=== PATIENT | female | born 2000 | race Caucasian/White ===

== ENCOUNTER 2022-05-20 10:09 | Emergency (ER) | payer SELFPAY ==
[~2022-05-20] VITALS: Ht 157 cm; Wt 117.0 kg
--- NOTE | 2022-05-20 10:36 | ED EENT ---
History of Present Illness General Chief Complaint: Oral/Throat Problems Stated Complaint: STREP + | TONSILS SWOLLEN Source: patient Exam Limitations: no limitations History of Present Illness Date Seen by Provider: May 20, 2022 Time Seen by Provider: 10:14 Initial Comments 22yoF with no pertinent PMH coming in due to sore throat in the setting of being strep positive since Friday. Has been on amoxicillin since then, but not improving. Difficulty swallowing, no breathing difficulty. No fever, cough, or any other concerns Allergies and Home Medications Allergies Coded Allergies: Penicillins (Verified Allergy, Unknown, 05/20/22) clonidine (Verified Allergy, Unknown, 05/20/22) morphine (Verified Allergy, Unknown, 05/20/22) Patient Home Medication List Home Medication List Reviewed: Yes Review of Systems Review of Systems Constitutional: No fever Eyes: No Symptoms Reported Ears: No Symptoms Reported Nose: no symptoms reported Mouth: no symptoms reported Throat: see HPI Respiratory: no symptoms reported Cardiovascular: no symptoms reported Gastrointestinal: no symptoms reported Musculoskeletal: no symptoms reported Skin: no symptoms reported Neurological: No Symptoms Reported Hematologic/Lymphatic: No Symptoms Reported Immunological/Allergic: no symptoms reported All Other Systems Reviewed Negative Unless Noted: Yes Past Akojzol-Kymqou-Mjoyjc Hx Patient Social History Tobacco Use?: No Substance use?: No Alcohol Use?: No Pt feels they are or have been: No Immunizations Up To Date Influenza Vaccine Up-to-Date: Yes; Up-to-Date First/Initial COVID19 Vaccinat: 2020 Second COVID19 Vaccination Solomon: 2020 Past Medical History Surgery/Hospitalization HX: GERD, PCOS D&C Surgeries: Yes Physical Exam Height, Weight, BMI Height: '" Weight: lbs. oz. kg; BMI Method: General Appearance: WD/WN, no apparent distress Eyes: bilateral eye normal inspection Ears: bilateral ear auricle normal Nose: normal inspection Mouth/Throat: other (Tonsillar exudate and erythema but no swelling, uvula is midline, normal voice) Neck: non-tender, full range of motion, supple, normal inspection Cardiovascular: regular rate, rhythm, no edema, no murmur Respiratory: chest non-tender, lungs clear, normal breath sounds, no res piratory distress, no accessory muscle use Gastrointestinal: normal bowel sounds, non tender, soft; No distended, No guarding, No rebound Neurologic/Psychiatric: no motor/sensory deficits, alert, normal mood/affect Skin: normal color, warm/dry Progress/Results/Core Measures Progress Progress Note : Progress Note 22-year-old female above history coming in due to sore throat. ABCs were intact and vitals are stable on presentation. Physical exam consistent with strep throat. Given the documented allergy to penicillin with hives, we will change her over to clindamycin. Also give her a steroid to try to help with the throat discomfort. Departure Impression Primary Impression: Streptococcal sore throat Disposition: HOME, SELF-CARE Condition: Stable Departure-Patient Inst. Decision time for Depature: 10:36 Referrals: LETICIA CH DO (PCP) Primary Care Physician [facility] (Family) Primary Care Physician Patient Instructions: Strep Throat (DC) Add. Discharge Instructions: You can throw away the amoxicillin, you will be on a new antibiotic for the next week. The steroid we gave you should be long-acting and will start to help later on today with the pain and discomfort. Take the Tylenol as needed, and the Toradol for the pain. Do not mix ibuprofen or naproxen with the Toradol. Scripts Ketorolac Tromethamine (Ketorolac Tromethamine) 10 Mg Tablet 10 MG PO Q6H for 3 Days, #12 TAB Prov: SAHIL DE LA FUENTE MD 05/20/22 Clindamycin HCl (Clindamycin HCl) 300 Mg Capsule 300 MG PO QID for 7 Days, #28 CAP Prov: SAHIL DE LA FUENTE MD 05/20/22 Work/School Note: Work Release Form Date Seen in the Emergency Department: May 20, 2022 Return to Work: May 22, 2022 Restrictions: No Restrictions SAHIL DE LA FUENTE MD May 20, 2022 10:36
[2022-05-20] MEDS ORDERED: CLIN-144 PO (10:37)
[2022-05-20] MEDS ORDERED: KETO10TA PO (10:37)
[2022-05-20 10:53] VITALS: BP 124/77
== END 2022-05-20 10:54 | disposition home or self-care (01) ==
LOC: ER 10:14
DX: J02.0 Streptococcal pharyngitis (principal); Z88.1 Allergy status to other antibiotic agents
CPT/HCPCS: 99283

== ENCOUNTER 2022-08-16 06:33 | Emergency (ER) | payer SELFPAY ==
[~2022-08-16] VITALS: Ht 157.5 cm; Wt 113.4 kg
[~2022-08-16 06:33] MED LIST: CLIN-144 PO; KETO10TA PO
[2022-08-16] MEDS ORDERED: CETI10CA PO (06:45)
[2022-08-16] MEDS ORDERED: PRD1T PO (06:45)
[2022-08-16] MEDS ORDERED: FLUT9.9S NS (06:45)
[2022-08-16] MEDS ORDERED: LACTATED RINGERS 1,000 ML IV ONE (07:00)
[2022-08-16] MEDS ORDERED: KETOROLAC 30 MG/ML VIAL IVP ONE (07:00)
[2022-08-16] MEDS ORDERED: RT-ALBUTEROL HFA 8.5 GM INHALER IH STA (07:02)
--- NOTE | 2022-08-16 07:08 | ED General ---
General Chief Complaint: Oral/Throat Problems Stated Complaint: SOB Nursing Triage Note: C/O SORE THROAT/SWELLING, CHEST CONGESTION, INCREASED SOA. REPORTS PROGRESSIVELY WORSE OVER LAST 2 WEEKS. SEEN AT [facility] 08/14/22 STARTED ON PREDNISONE, ZYRTEC, FLONASE WITHOUT IMPROVEMENT. Source of Information: Patient Exam Limitations: No Limitations History of Present Illness Date Seen by Provider: Aug 16, 2022 Time Seen by Provider: 06:46 Initial Comments This 22-year-old young lady presents to the emergency room with 2 weeks of acute illness including sore throat, swollen tonsils, fatigue, difficulty swallowing, generalized myalgia, diarrhea, shortness of breath, and sharp pain in the chest with breathing. She has not had fevers that she is aware of. She did present to the clinic and was prescribed steroids which she believes were not very helpful. She does have a history of tonsillitis and strep throat in the past. She reports chronic tonsillar hypertrophy. She also has a history of asthma but does not presently use any inhaled medications. She is notably tachypneic and tachycardic during assessment. She reports no testing for viral illnesses or strep throat was performed in the clinic. Allergies and Home Medications Allergies Coded Allergies: Penicillins (Verified Allergy, Unknown, 05/20/22) clonidine (Verified Allergy, Unknown, 05/20/22) morphine (Verified Allergy, Unknown, 05/20/22) Patient Home Medication List Home Medication List Reviewed: Yes Azithromycin (Azithromycin) 250 Mg Tablet, 500 MG PO DAILY Prescribed by: ZHANG CHURCHILL on 08/16/22 09 Cetirizine HCl (Zyrtec) 10 Mg Capsule, 10 MG PO, (Reported) Entered as Reported by: ADOLFO OKEEFE on 08/16/22644 Last Action: New Order Fluticasone Propionate (Flonase Allergy Relief) 50 Mcg/Actuation [place].susp, 2 SPRAY NS DAILY, (Reported) Entered as Reported by: ADOLFO OKEEFE on 08/16/22644 Last Action: New Order Prednisone (Prednisone) 1 Mg Tab, Unknown Dose PO, (Reported) Entered as Reported by: ADOLFO OKEEFE on 08/16/22644 Last Action: New Order Discontinued Medications Clindamycin HCl (Clindamycin HCl) 300 Mg Capsule, 300 MG PO QID Discontinued Reason: No Longer Taking Prescribed by: SAHIL DE LA FUENTE on 05/20/22 1037 Last Action: Discontinued Ketorolac Tromethamine (Ketorolac Tromethamine) 10 Mg Tablet, 10 MG PO Q6H Discontinued Reason: No Longer Taking Prescribed by: SAHIL DE LA FUENTE on 05/20/22 1037 Last Action: Discontinued Review of Systems Review of Systems Constitutional: see HPI EENTM: see HPI Respiratory: see HPI Cardiovascular: see HPI Gastrointestinal: see HPI Genitourinary: no symptoms reported Musculoskeletal: see HPI Skin: no symptoms reported Psychiatric/Neurological: No Symptoms Reported Hematologic/Lymphatic: No Symptoms Reported Immunological/Allergic: no symptoms reported Past Odgcjwg-Evoevk-Tehapu Hx Patient Social History Tobacco Use?: No Substance use?: No Alcohol Use?: No Pt feels they are or have been: No Immunizations Up To Date First/Initial COVID19 Vaccinat: 2020 Second COVID19 Vaccination Solomon: 2020 Third COVID19 Vaccination Date: 2021 Past Medical History Surgery/Hospitalization HX: GERD, PCOS D&C Surgeries: Yes (Ectopic ) Respiratory: Yes Asthma Cardiac: No Neurological: No : No Reproductive Disorders: Yes Female Reproductive Disorders: Polycystic Ovarian Dis Genitourinary: No Gastrointestinal: Yes Gastroesophageal Reflux Musculoskeletal: No Endocrine: Yes ("Thyroid problem") HEENT: Yes (Chronic tonsillar hypertrophy) Cancer: No Psychosocial: Yes Integumentary: No Physical Exam Vital Signs Vital Signs - First Documented 08/16/22 06:40 Temp 37.4 Pulse 124 Resp 24 B/P (MAP) 152/97 (115) Pulse Ox 100 O2 Delivery Room Air Capillary Refill : Less Than 3 Seconds Height, Weight, BMI Height: '" Weight: lbs. oz. kg; 45.00 BMI Method: General Appearance: WD/WN, Mild Distress, Obese HEENT: PERRL/EOMI, TMs Normal, Pharyngeal Erythema, Tonsillar Exudate, Tonsillar Enlargement (Marked, nearly touching, symmetric) Neck: Normal Inspection Respiratory: Lungs Clear, No Accessory Muscle Use, No Respiratory Distress, Dec reased Breath Sounds; No Wheezing; Other (Tachypnea, decreased air movement, prolonged expiratory phase) Cardiovascular: No Edema, No Murmur, Tachycardia Extremity: Normal Inspection Neurologic/Psychiatric: Alert, Oriented x3, No Motor/Sensory Deficits, Normal Mood/Affect Skin: Normal Color, Warm/Dry Progress/Results/Core Measures Suspected Sepsis SIRS Temperature: Pulse: 124 Respiratory Rate: 24 Laboratory Tests 08/16/22 07:07: White Blood Count 9.6 Blood Pressure 152 /97 Mean: 115 Laboratory Tests 08/16/22 07:07: Creatinine 0.71, Platelet Count 221, Total Bilirubin 0.3 Results/Orders Lab Results Laboratory Tests Test 08/16/22 06:53 08/16/22 06:58 08/16/22 07:07 Range/Units Group A Streptococcus Screen NEGATIVE NEGATIVE Influenza Type A (RT-PCR) Not Detected Not Detecte Influenza Type B (RT-PCR) Not Detected Not Detecte SARS-CoV-2 RNA (RT-PCR) Not Detected Not Detecte White Blood Count 9.6 4.3-11.0 10^3/uL Red Blood Count 5.07 3.80-5.11 10^6/uL Hemoglobin 14.4 11.5-16.0 g/dL Hematocrit 42 35-52 % Mean Corpuscular Volume 84 80-99 fL Mean Corpuscular Hemoglobin 28 25-34 pg Mean Corpuscular Hemoglobin Concent 34 32-36 g/dL Red Cell Distribution Width 12.9 10.0-14.5 % Platelet Count 221 130-400 10^3/uL Mean Platelet Volume 10.6 9.0-12.2 fL Immature Granulocyte % (Auto) 1 % Neutrophils (%) (Auto) 73 42-75 % Lymphocytes (%) (Auto) 15 12-44 % Monocytes (%) (Auto) 11 0-12 % Eosinophils (%) (Auto) 0 0-10 % Basophils (%) (Auto) 0 0-10 % Neutrophils # (Auto) 7.0 1.8-7.8 10^3/uL Lymphocytes # (Auto) 1.4 1.0-4.0 10^3/uL Monocytes # (Auto) 1.1 H 0.0-1.0 10^3/uL Eosinophils # (Auto) 0.0 0.0-0.3 10^3/uL Basophils # (Auto) 0.0 0.0-0.1 10^3/uL Immature Granulocyte # (Auto) 0.1 0.0-0.1 10^3/uL Sodium Level 139 135-145 MMOL/L Potassium Level 3.4 L 3.6-5.0 MMOL/L Chloride Level 103 98-107 MMOL/L Carbon Dioxide Level 25 21-32 MMOL/L Anion Gap 11 5-14 MMOL/L Blood Urea Nitrogen 7 7-18 MG/DL Creatinine 0.71 0.60-1.30 MG/DL Estimat Glomerular Filtration Rate 123 BUN/Creatinine Ratio 10 Glucose Level 94 70-105 MG/DL Calcium Level 8.8 8.5-10.1 MG/DL Corrected Calcium 8.8 8.5-10.1 MG/DL Total Bilirubin 0.3 0.1-1.0 MG/DL Aspartate Amino Transf (AST/SGOT) 14 5-34 U/L Alanine Aminotransferase (ALT/SGPT) 19 0-55 U/L Alkaline Phosphatase 62 40-136 U/L C-Reactive Protein High Sensitivity 4.43 H 0.00-0.50 MG/DL Total Protein 7.2 6.4-8.2 GM/DL Albumin 4.0 3.2-4.5 GM/DL Serum Test, Qualitative NEGATIVE NEGATIVE Monoscreen NEGATIVE NEGATIVE My Orders Orders - ZHANG BANERJEE MD Cbc With Automated Diff (08/16/22 06:56) Comprehensive Metabolic Panel (08/16/22 06:56) Hs C Reactive Protein (08/16/22 06:56) Hcg,Qualitative Serum (08/16/22 06:56) Monotest (08/16/22 06:56) Rapid Strep A Screen (08/16/22 06:56) Covid 19 Inhouse Test (08/16/22 06:56) Influenza A And B By Pcr (08/16/22 06:56) Ed Iv/Invasive Line Start (08/16/22 06:56) Lactated Ringers (Lr 1000 Ml Iv Solution (08/16/22 07:00) Ketorolac Injection (Toradol Injection) (08/16/22 07:00) Albuterol Inhaler (Albuterol) (08/16/22 07:02) Chest Pa/Lat (2 View) (08/16/22 08:00) Medications Given in ED Current Medications Medications Dose Ordered Sig/Reyes Route Start Time Stop Time Status Last Admin Dose Admin Ketorolac Tromethamine 30 mg ONCE ONCE IVP 08/16/22 07:00 08/16/22 07:01 DC 08/16/22 07:05 30 MG Lactated Ringer's 1,000 ml @ 0 mls/hr Q0M ONCE IV 08/16/22 07:00 08/16/22 07:01 DC 08/16/22 07:05 999 MLS/HR Vital Signs/I&O 08/16/22 08/16/22 06:40 09:17 Temp 37.4 36.5 Pulse 124 87 Resp 24 17 B/P (MAP) 152/97 (115) 137/86 Pulse Ox 100 98 O2 Delivery Room Air Room Air Capillary Refill : Less Than 3 Seconds Blood Pressure Mean: 115 Progress Note #1: Time: 07:11 Progress Note Patient has been interviewed and examined. This is a prolonged illness with worsening condition despite treatment with steroids. She is notably tachycardic and tachypneic with difficulty breathing and markedly enlarged tonsils. This prolonged illness should be evaluated further with labs, strep testing, and viral testing. Work-up including CBC, CMP, CRP, monoscreen, viral screening for influenza and COVID, and rapid strep test is being performed. If serum test is negative, chest x-ray will also be obtained. IV fluids are in fusing. Pain is being treated with Toradol. Shortness of breath with prolonged expiratory phase is being treated with an albuterol inhaler. Further therapies will depend on results of tests. Progress Note #2: Progress Note Work-up was essentially unremarkable. CBC, CMP, and CRP were reviewed by me and were normal. Screening test for infectious illnesses including mono, influenza, COVID-19, and rapid strep were also all negative. Chest x-ray was viewed by me and no acute abnormalities were appreciated. Radiologist report was also reviewed and no acute abnormalities were appreciated. Patient had prolonged expiratory phase on auscultation and albuterol inhaler was provided. This did improve her breathing some. She reports Toradol did not help her discomfort much. Her heart rate did drop into the 1 teens after 300 mL of IV fluids and Toradol. She only received 300 mL of IV fluids before her IV failed. Patient was discharged in somewhat improved condition with a prescription for azithromycin. She has tried amoxicillin and Augmentin in the past without much improvement in symptoms. She has a penicillin allergy but can take amoxicillin products. I advised referral to an ENT provider, but her lack of insurance makes this prohibitive. We discussed options for looking into other types of insurance coverage. Discharge instructions, prescription, and use of [id number] medications were reviewed with the patient. See discharge instructions for further discussion. Diagnostic Imaging Diagonstic Imaging: Xray Plain Films/CT/US/NM/MRI: chest Comments Chest x-ray viewed by me and report reviewed. No acute abnormalities were appreciated by my interpretation. Radiologist's report was also reviewed as below: NAME: DONALD [facility] REC#: [id number] PT STATUS: REG ER : 2000 PHYSICIAN: ZHANG BANERJEE MD ADMIT DATE: 08/16/22/ER Draft Date of Exam:08/16/22 CHEST PA/LAT (2 VIEW) Indication: Sore throat and throat swelling as well as chest congestion increasing shortness of air. Time of Exam: 8:23 AM No prior studies are available for comparison. Findings: The heart size is normal. The pulmonary vascularity is unremarkable. The lungs are clear. No infiltrate, effusion or pneumothorax is detected. Impression: No acute cardiopulmonary process is detected. Dictated on workstation # [id number] Dict: 08/16/22816 Trans: 08/16/22 08 CV [id number] Interpreted by: BENEDICT TERRELL MD Departure Impression Primary Impression: Recurrent tonsillitis Additional Impressions: Acute bronchitis Qualified Codes: J20.9 - Acute bronchitis, unspecified Flu-like symptoms Disposition: 01 HOME, SELF-CARE Condition: Stable Admissions Decision to Admit/Date: Aug 16, 2022 Time/Decision to Admit Time: 08:54 Departure-Patient Inst. Decision time for Depature: 08:54 Referrals: JANKI ELLIOTT APRN (PCP) Primary Care Physician [facility] (Family) Primary Care Physician Patient Instructions: Sore Throat in Adults Add. Discharge Instructions: Drink plenty of clear liquids to stay well-hydrated. For pain or fever you may take ibuprofen up to 600 mg every 6 hours as needed and Tylenol (acetaminophen) up to 1000 mg every 6 hours as needed. Complete the entire course of azithromycin as prescribed. You should take 2 tablets daily for 5 days. Seek follow-up with your primary care provider next week to review throat culture results and to further evaluate your recurrent tonsillitis and a plan for further treatment of recurrent tonsillitis. Use your inhaler up to 4 puffs in a 4-hour period of time as needed for wheezing, uncontrolled cough, or difficulty with expiration. For your nasal congestion you may use [id number] Afrin (Oxymetazoline). Limit Afrin to 3 days only. You may use rzcl-tel-bidmovz Flonase (fluticasone) as a maintenance medication for sinus congestion, nasal allergies, etc. On day 3 or 4 of antibiotics and again the day after completing antibiotic, sanitize or replace any oral instruments such as toothbrushes. You may finish the steroids as prescribed. Complete financial analysis consultant paperwork for the hospital if you have not already done so and seek options for insurance coverage on the exchange or through your family's employers. Work toward weight loss to improve your general health and especially to improve problems with breathing and fullness in the throat that may cause more severe symptoms with tonsillitis, sleep apnea, etc. Return to care if you have worsening symptoms despite following these instructions. All discharge instructions reviewed with patient and/or family. Voiced understanding. Scripts Azithromycin (Azithromycin) 250 Mg Tablet 500 MG PO DAILY, #10 TAB 0 Refills Prov: ZHANG BANERJEE MD 08/16/22 Work/School Note: Work Release Form Date Seen in the Emergency Department: Aug 16, 2022 Return to Work: Aug 17, 2022 Restrictions: Return-No Fever (24hrs), Return-No Vomiting(24hrs) Copy Copies To 1: [facility]/ZHANG EUGENE MD Aug 16, 2022 07:08
[2022-08-16 07:17] LABS: BASOPHILS % (AUTO) 0 % (0-10); EOSINOPHILS % (AUTO) 0 % (0-10); HEMATOCRIT 42 % (35-52); HEMOGLOBIN 14.4 g/dL (11.5-16.0); LYMPHOCYTES # (AUTO) 1.4 10^3/uL (1.0-4.0); LYMPHOCYTES % (AUTO) 15 % (12-44); MEAN CORPUSCULAR HEMOGLOBIN 28 pg (25-34); MEAN CORPUSCULAR HGB CONC 34 g/dL (32-36); MEAN CORPUSCULAR VOLUME 84 fL (80-99); MEAN PLATELET VOLUME 10.6 fL (9.0-12.2); MONOCYTES # (AUTO) 1.1 10^3/uL (0.0-1.0); MONOCYTES % (AUTO) 11 % (0-12); NEUTROPHILS % (AUTO) 73 % (42-75); PLATELET COUNT 221 10^3/uL (130-400); WHITE BLOOD COUNT 9.6 10^3/uL (4.3-11.0)
[2022-08-16 07:45] LABS: POTASSIUM 3.4 MMOL/L (3.6-5.0)
[2022-08-16 07:47] LABS: CALCIUM 8.8 MG/DL (8.5-10.1)
[2022-08-16 07:48] LABS: TOTAL PROTEIN 7.2 GM/DL (6.4-8.2)
[2022-08-16 07:50] LABS: BILIRUBIN,TOTAL 0.3 MG/DL (0.1-1.0)
[2022-08-16 07:51] LABS: CREATININE SERUM 0.71 MG/DL (0.60-1.30)
--- NOTE | 2022-08-16 08:20 | Diagnostic Imaging Report ---
Indication: Sore throat and throat swelling as well as chest congestion increasing shortness of air. Time of Exam: 8:23 AM No prior studies are available for comparison. Findings: The heart size is normal. The pulmonary vascularity is unremarkable. The lungs are clear. No infiltrate, effusion or pneumothorax is detected. Impression: No acute cardiopulmonary process is detected. Dictated by: Dictated on workstation # [id number]
[2022-08-16] MEDS ORDERED: AZIT250T12 PO (09:02)
[2022-08-16 09:17] VITALS: BP 137/86
[2022-08-17] MEDS ORDERED: CLINDAMYCIN 600 MG/50 ML IVPB 50 ML IV ONE (20:45)
[2022-08-17] MEDS ORDERED: PRD20T PO (22:08)
[2022-08-17] MEDS ORDERED: CEFU250T80 PO (22:08)
== END 2022-08-16 09:17 | disposition home or self-care (01) ==
LOC: EDUNIT# 06:33 → ER 06:36
DX: J03.91 Acute recurrent tonsillitis, unspecified (principal); J20.9 Acute bronchitis, unspecified; J45.909 Unspecified asthma, uncomplicated; E66.9 Obesity, unspecified; Z88.0 Allergy status to penicillin; Z68.42 Body mass index [BMI] 45.0-49.9, adult; Z20.822 Contact with and (suspected) exposure to COVID-19
CPT/HCPCS: 36415; 71046; 80053; 84703; 85025; 86141; 86308; 87430; 87636

== ENCOUNTER 2022-08-17 20:17 | Emergency (ER) | payer SELFPAY ==
[~2022-08-17] VITALS: Ht 157.5 cm; Wt 113.4 kg
[~2022-08-17 20:17] MED LIST changes: +AZIT250T12 PO; +CETI10CA PO; +FLUT9.9S NS; +PRD1T PO
[2022-08-17] MEDS ORDERED: NS IV 1000 ML 1,000 ML IV STA ×2 (20:42→21:42)
[2022-08-17] MEDS ORDERED: KETOROLAC 30 MG/ML VIAL IVP ONE (20:45)
--- NOTE | 2022-08-17 20:49 | ED EENT ---
History of Present Illness General Stated Complaint: SORE THROAT/DIFFICULTY SWALLOWING/SOA Source: patient Exam Limitations: no limitations (SAHIL RAMOS) History of Present Illness Date Seen by Provider: Aug 17, 2022 Time Seen by Provider: 20:45 Initial Comments Patient is a 22-year-old female who presents ED with 2 weeks of sore throat, difficulty swallowing and shortness of breath. History of recurring tonsillitis. She states she was seen here yesterday and prescribed azithromycin. She was seen this past week started on ProAir at his own. She had a negative COVID, influenza and strep swab. She states this is the third time over the past few months that she has had this reoccurring tonsillitis. She states this evening she started having difficulty swallowing and with pain with eating. Denies of any wheezing. Has been using albuterol inhaler without much improvement. She reports nasal congestion without any sinus pressure. She is febrile and tachycardic on arrival. Sepsis work-up was initiated started on clindamycin. Denies vomiting, diarrhea, dysuria, hematuria, concern for , visual changes, unable to tolerate (SAHIL RAMOS) Allergies and Home Medications Allergies Coded Allergies: Penicillins (Verified Allergy, Unknown, 05/20/22) clonidine (Verified Allergy, Unknown, 05/20/22) morphine (Verified Allergy, Unknown, 05/20/22) Patient Home Medication List Home Medication List Reviewed: Yes (SAHIL RAMOS) Azithromycin (Azithromycin) 250 Mg Tablet, 500 MG PO DAILY Prescribed by: ZHANG CHURCHILL on 08/16/22901 Cefuroxime Axetil (Cefuroxime) 250 Mg Tablet, 250 MG PO BID Prescribed by: EFREM PYLE on 08/17/222207 Cetirizine HCl (Zyrtec) 10 Mg Capsule, 10 MG PO, (Reported) Entered as Reported by: ADOLFO OKEEFE on 08/16/22644 Fluticasone Propionate (Flonase Allergy Relief) 50 Mcg/Actuation [place].susp, 2 SPRAY NS DAILY, (Reported) Entered as Reported by: ADOLFO OKEEFE on 08/16/22644 Prednisone (Prednisone) 1 Mg Tab, Unknown Dose PO, (Reported) Entered as Reported by: ADOLFO OKEEFE on 08/16/22644 Prednisone (Prednisone) 20 Mg Tab, 20 MG PO UD Prescribed by: EFREM PYLE on 08/17/228 Discontinued Medications Clindamycin HCl (Clindamycin HCl) 300 Mg Capsule, 300 MG PO QID Discontinued Reason: No Longer Taking Prescribed by: SAHIL DE LA FUENTE on 05/20/22 1037 Ketorolac Tromethamine (Ketorolac Tromethamine) 10 Mg Tablet, 10 MG PO Q6H Discontinued Reason: No Longer Taking Prescribed by: SAHIL DE LA FUENTE on 05/20/22 1037 Review of Systems Review of Systems Constitutional: chills; No diaphoresis; fever, malaise; No weakness Eyes: Denies Blurred Vision, Denies Drainage, Denies Decreased Acuity, Denies Inflammation, Denies Pain, Denies Photophobia Ears: Denies Dizziness, Denies Bloody Discharge Nose: congestion Mouth: swelling Throat: pain, swelling, painful swallowing, difficulty with fluids Respiratory: No see HPI, No cough, No dyspnea on exertion Cardiovascular: No chest pain Gastrointestinal: No abdominal pain, No diarrhea, No nausea, No vomiting Musculoskeletal: No back pain, No joint pain Skin: change in color, change in hair/nails (SAHIL RAMOS) All Other Systems Reviewed Negative Unless Noted: Yes (SAHIL RAMOS) Past Azpxjnj-Aehknq-Fshgcv Hx Immunizations Up To Date First/Initial COVID19 Vaccinat: 2020 Second COVID19 Vaccination Solomon: 2020 Third COVID19 Vaccination Date: 2021 (SAHIL RAMOS) Past Medical History Surgery/Hospitalization HX: GERD, PCOS D&C Surgeries: Yes (Ectopic ) Respiratory: Yes Asthma Cardiac: No Neurological: No Reproductive Disorders: Yes Female Reproductive Disorders: Polycystic Ovarian Dis Genitourinary: No Gastrointestinal: Yes Gastroesophageal Reflux Musculoskeletal: No Endocrine: Yes ("Thyroid problem") HEENT: Yes (Chronic tonsillar hypertrophy) Cancer: No Psychosocial: Yes Integumentary: No (SAHIL RAMOS) Physical Exam Vital Signs Vital Signs - First Documented 08/17/22 20:28 Temp 37.9 Pulse 119 Resp 20 B/P (MAP) 140/93 (109) Pulse Ox 96 O2 Delivery Room Air (LORI LAMA K DO) Height, Weight, BMI Height: '" Weight: lbs. oz. kg; 45.00 BMI Method: General Appearance: WD/WN, no apparent distress Eyes: bilateral eye normal inspection, bilateral eye PERRL, bilateral eye EOMI Ears: bilateral ear auricle normal, bilateral ear canal normal, bilateral ear TM normal, bilateral ear bleeding Nose: normal inspection Mouth/Throat: other (Oropharynx patent with exudate right tonsil. No uvula deviation. Tolerate secretions. Cervical adenopathy) Neck: non-tender, full range of motion, supple, normal inspection Cardiovascular: no edema, no gallop, no JVD, tachycardia Respiratory: chest non-tender, lungs clear, normal breath sounds, no res piratory distress Gastrointestinal: normal bowel sounds, non tender, soft, no organomegaly Neurologic/Psychiatric: gas flow regulator II-XII nml as tested, no motor/sensory deficits, alert, normal mood/affect, oriented x 3 Skin: normal color, warm/dry (SAHIL RAMOS) Progress/Results/Core Measures Results/Orders Lab Results Laboratory Tests Test 08/17/22 20:35 08/17/22 20:48 Range/Units Influenza Type A (RT-PCR) Not Detected Not Detecte Influenza Type B (RT-PCR) Not Detected Not Detecte SARS-CoV-2 RNA (RT-PCR) Not Detected Not Detecte Group A Streptococcus Screen NEGATIVE NEGATIVE White Blood Count 8.6 4.3-11.0 10^3/uL Red Blood Count 4.84 3.80-5.11 10^6/uL Hemoglobin 13.5 11.5-16.0 g/dL Hematocrit 40 35-52 % Mean Corpuscular Volume 82 80-99 fL Mean Corpuscular Hemoglobin 28 25-34 pg Mean Corpuscular Hemoglobin Concent 34 32-36 g/dL Red Cell Distribution Width 12.6 10.0-14.5 % Platelet Count 238 130-400 10^3/uL Mean Platelet Volume 10.4 9.0-12.2 fL Immature Granulocyte % (Auto) 1 % Neutrophils (%) (Auto) 60 42-75 % Lymphocytes (%) (Auto) 26 12-44 % Monocytes (%) (Auto) 12 0-12 % Eosinophils (%) (Auto) 1 0-10 % Basophils (%) (Auto) 0 0-10 % Neutrophils # (Auto) 5.2 1.8-7.8 10^3/uL Lymphocytes # (Auto) 2.3 1.0-4.0 10^3/uL Monocytes # (Auto) 1.0 0.0-1.0 10^3/uL Eosinophils # (Auto) 0.0 0.0-0.3 10^3/uL Basophils # (Auto) 0.0 0.0-0.1 10^3/uL Immature Granulocyte # (Auto) 0.0 0.0-0.1 10^3/uL Sodium Level 137 135-145 MMOL/L Potassium Level 3.6 3.6-5.0 MMOL/L Chloride Level 103 98-107 MMOL/L Carbon Dioxide Level 22 21-32 MMOL/L Anion Gap 12 5-14 MMOL/L Blood Urea Nitrogen 7 7-18 MG/DL Creatinine 0.68 0.60-1.30 MG/DL Estimat Glomerular Filtration Rate 126 BUN/Creatinine Ratio 10 Glucose Level 95 70-105 MG/DL Lactic Acid Level 0.60 0.50-2.00 MMOL/L Calcium Level 9.2 8.5-10.1 MG/DL Corrected Calcium 9.4 8.5-10.1 MG/DL Total Bilirubin 0.4 0.1-1.0 MG/DL Aspartate Amino Transf (AST/SGOT) 23 5-34 U/L Alanine Aminotransferase (ALT/SGPT) 28 0-55 U/L Alkaline Phosphatase 65 40-136 U/L C-Reactive Protein High Sensitivity 11.45 H 0.00-0.50 MG/DL Total Protein 7.4 6.4-8.2 GM/DL Albumin 3.8 3.2-4.5 GM/DL Lipase 34 8-78 U/L (GENARO,NANI K DO) Medications Given in ED Current Medications Medications Dose Ordered Sig/Reyes Route Start Time Stop Time Status Last Admin Dose Admin Iohexol 75 ml ONCE ONCE IV 08/17/22 21:00 08/17/22 21:01 DC 08/17/22 21:10 75 ML Ketorolac Tromethamine 30 mg ONCE ONCE IVP 08/17/22 20:45 08/17/22 20:46 DC 08/17/22 20:49 30 MG Sodium Chloride 100 ml ONCE ONCE IV 08/17/22 21:00 08/17/22 21:01 DC 08/17/22 21:10 80 ML (NANI LAM DO) Vital Signs/I&O 08/17/22 08/17/22 20:28 22:52 Temp 37.9 Pulse 119 102 Resp 20 18 B/P (MAP) 140/93 (109) 113/79 Pulse Ox 96 98 O2 Delivery Room Air Room Air (NANI LAM DO) Departure Communication (PCP) reviewed previous ER visit, lab tests. History of recurrent tonsillitis. She reports 10 episodes over the past year. She was seen here yesterday diagnosed with pharyngitis was discharged with azithromycin and albuterol inhaler. She states she started prednisone unknown dose on August 14 prescribed by [facility]. She states this evening she was having difficulty swallowing with pain difficulty breathing. Her oxygen on room air was 96%. No stridor, wheezing. Tolerating secretions. Patient had a negative strep, COVID and influenza and mono yesterday. Negative strep today. Culture pending. Patient was tachycardic and febrile. Due to worsening symptoms sepsis work-up was initiated. She was started on a liter of fluid and was given Toradol for the fever and pain. CBC, CMP was otherwise unremarkable. Normal lactic acid. Blood cultures pending. Was started on IV clindamycin. No uvula deviation on exam of her throat. Exudate noted on the right tonsil. Cervical adenopathy. No tenderness to the floor the mouth. Due to worsening symptoms difficulty breathing CT of the neck was ordered. Results of her CT soft tissue neck shows severe pharyngitis without evidence of fluid collection. No evidence of retropharyngeal abscess. No evidence of epiglottitis. Patent infra laryngeal trachea. Larynx without any structural abnormality. She had a negative chest x-ray performed yesterday. Patient was still slightly tachycardic. Was given a second liter of fluid. Discussed patient with Dr. Beckford ENT on-call. He recommends starting ceftin to 50 mg twice daily for 10 days. Recommends taper dose of steroid. Will prescribe 1 dose of 40 mg steroid and to taper to 20 mg for additional 4 days for total of 8 days. Recommend follow-up with primary care physician and to get a referral to Dr. Beckford to discuss her tonsils. She agrees with this plan of action. Tolerate secretions. She is able to eat. She has not been on antibiotics for that long to notice an improvement. Continue monitoring symptoms at home. This was discussed with mother at bedside as well. Improvement of her heart rate 100 and fever. (SAHIL RAMOS) Impression Primary Impression: Recurrent tonsillitis Disposition: HOME, SELF-CARE Condition: Stable Departure-Patient Inst. Decision time for Depature: 22:05 (SAHIL RAMOS) Referrals: JANKI ELLIOTT APRN (PCP) Primary Care Physician [facility] (Family) Primary Care Physician SORAYA BECKFORD MD Patient Instructions: Sore Throat in Adults, Sore Throat, Adult ED Add. Discharge Instructions: Recommend follow-up your primary care physician for further evaluation and follow-up with Dr. Beckford. If any worsening symptoms return back to ED Scripts Prednisone (Prednisone) 20 Mg Tab 20 MG PO UD, #6 TAB Take 2 tabs(40mg) for 1 day, and than decrease to 1 tab (20mg)daily for additional 4 days. Prov: SAHIL RAMOS 08/17/22 Cefuroxime Axetil (Cefuroxime) 250 Mg Tablet 250 MG PO BID for 10 Days, #20 TAB Prov: SAHIL RAMOS 08/17/22 Work/School Note: Work Release Form Date Seen in the Emergency Department: Aug 17, 2022 Return to Work: Aug 21, 2022 ATTENDING PHYSICIAN NOTE: I WAS PHYSICALLY PRESENT ER PHYSICIAN, BUT I WAS NOT INVOLVED IN ANY DECISION MAKING OR ANY CARE OF THIS PATIENT AND I AM NOT COLLABORATING PHYSICIAN. (NANI LAM DO) SAHIL RAMOS Aug 17, 2022 20:48 NANI LAM DO Aug 18, 2022 04:10
[2022-08-17] MEDS ORDERED: HOLD METFORMIN - RECEIVED CONTRAST 20 ML VIAL IV SCH (21:00)
[2022-08-17] MEDS ORDERED: IOHEXOL 350 MG/ML 100 ML (OMNIPAQUE 350) VIAL IV ONE (21:00)
[2022-08-17] MEDS ORDERED: NS 100 ML (IVPB) BAG IV ONE (21:00)
--- NOTE | 2022-08-17 21:25 | Diagnostic Imaging Report ---
PROCEDURE: CT neck soft tissue with contrast. TECHNIQUE: Multiple contiguous axial images were obtained through the neck after the administration of contrast. Auto Exposure Controls were utilized during the CT exam to meet ALARA standards for radiation dose reduction. INDICATION: Sore throat, difficulty swallowing. FINDINGS: There is symmetrical low-density edematous thickening of the nasopharynx, oropharynx and hypopharyngeal mucosa, consistent with pharyngitis. No abscess or fluid collection, however. The free edge of the epiglottis appears unremarkable. The aryepiglottic folds normal. Focal folds and remaining structures of the larynx normal. The infra-laryngeal trachea patent. Prevertebral and retropharyngeal spaces normal. Parotid submandibular and thyroid glands unremarkable. There is some reactive cervical lymphadenopathy, bilaterally. Paranasal sinuses clear. Bony structures nonacute. IMPRESSION: Findings of a significant degree of pharyngitis but no abscess or drainable fluid collection and no evidence for epiglottitis. Dictated by: Dictated on workstation # [id number]
[2022-08-17 21:35] LABS: BASOPHILS % (AUTO) 0 % (0-10); EOSINOPHILS % (AUTO) 1 % (0-10); HEMATOCRIT 40 % (35-52); HEMOGLOBIN 13.5 g/dL (11.5-16.0); LYMPHOCYTES # (AUTO) 2.3 10^3/uL (1.0-4.0); LYMPHOCYTES % (AUTO) 26 % (12-44); MEAN CORPUSCULAR HEMOGLOBIN 28 pg (25-34); MEAN CORPUSCULAR HGB CONC 34 g/dL (32-36); MEAN CORPUSCULAR VOLUME 82 fL (80-99); MEAN PLATELET VOLUME 10.4 fL (9.0-12.2); MONOCYTES % (AUTO) 12 % (0-12); NEUTROPHILS # (AUTO) 5.2 10^3/uL (1.8-7.8); NEUTROPHILS % (AUTO) 60 % (42-75); PLATELET COUNT 238 10^3/uL (130-400); WHITE BLOOD COUNT 8.6 10^3/uL (4.3-11.0)
[2022-08-17 21:51] LABS: ALBUMIN 3.8 GM/DL (3.2-4.5); BILIRUBIN,TOTAL 0.4 MG/DL (0.1-1.0); CALCIUM 9.2 MG/DL (8.5-10.1); CREATININE SERUM 0.68 MG/DL (0.60-1.30); POTASSIUM 3.6 MMOL/L (3.6-5.0); TOTAL PROTEIN 7.4 GM/DL (6.4-8.2)
[2022-08-17] MEDS ORDERED: PRD20T PO (22:08)
[2022-08-17] MEDS ORDERED: CEFU250T80 PO (22:08)
[2022-08-17 22:52] VITALS: BP 113/79
== END 2022-08-17 22:52 | disposition home or self-care (01) ==
LOC: EDUNIT# 20:17 → ER 20:20
DX: J03.91 Acute recurrent tonsillitis, unspecified (principal); A41.9 Sepsis, unspecified organism; Z88.0 Allergy status to penicillin; Z20.822 Contact with and (suspected) exposure to COVID-19
CPT/HCPCS: 36415; 70491; 80053; 83605; 83690; 85025; 86141; 87040; 87430; 87636